=== PATIENT | male | born 1960 | race Caucasian/White ===

== ENCOUNTER 2020-08-12 11:55 | Outpatient (REF) | payer MEDICARE, MEDICAID, SELFPAY | END 2020-08-12 11:56 | disposition home or self-care (01) | LOC: HO.BBR 11:55 | PROVIDERS: Visit Provider Internal Medicine Hematology & Oncology | DX: Z13.89 Encounter for screening for other disorder (principal) ==

== ENCOUNTER 2020-11-12 10:00 | Outpatient (REF) | payer MEDICARE, MEDICAID, SELFPAY | END 2020-11-12 10:01 | disposition home or self-care (01) | LOC: HO.BBR 10:00 | PROVIDERS: Visit Provider Internal Medicine Hematology & Oncology | DX: Z13.89 Encounter for screening for other disorder (principal) ==

== ENCOUNTER 2022-04-27 08:50 | Outpatient (REF) | payer MEDICARE, MEDICAID, SELFPAY ==
[2022-04-27 09:07] LABS: MANUAL DIFF FLAG NO
[2022-04-27 09:10] LABS: Basophils Absolute Auto 0.1 X10*3/uL (0.0-0.2); Eosinophils Absolute Auto 0.1 X10*3/uL (0.0-0.4); Hematocrit 47.7 % (42.0-52.0); Hemoglobin 16.4 g/dl (14.0-18.0); Imm Gran Abs Auto 0.03 X10*3/uL (0.00-0.03); Imm Gran Pct Auto 0.4 % (0.0-0.4); Lymphocytes Absolute Auto 1.4 X10*3/uL (1.2-4.9); Lymphocytes Percent Auto 17.2 % (20-40); Mean Corpuscular HGB Conc 34.4 g/dl (31.0-36.0); Mean Corpuscular Hemoglobin 31.2 pg (27.0-33.0); Mean Corpuscular Volume 90.7 fL (80.0-98.0); Mean Platelet Volume 9.1 fL (9.4-12.4); Monocytes Absolute Auto 0.4 X10*3/uL (0.1-1.2); Monocytes Percent Auto 5.2 % (2-11); Neutrophils Absolute Auto 6.3 x10*3/uL (2.0-8.3); Neutrophils Percent Auto 75.2 % (45-73); Platelet Count 159 X10*3/uL (160-400); Red Blood Count 5.26 X10*6/uL (4.60-5.80); Red Cell Distribution Width 12.8 % (11.0-16.0); White Blood Count 8.3 X10*3/uL (4.8-10.8)
[2022-04-27 09:38] LABS: Iron 98 mcg/dL (45-160); Percent Iron Saturation 28 % (15-50); Total Iron Binding Capacity 356 mcg/dL (228-428); Unsaturated Iron Binding 258 ug/dL
[2022-04-27 09:58] LABS: Ferritin 29 ng/mL (20-250)
== END 2022-04-27 08:51 | disposition home or self-care (01) ==
LOC: HO.BBR 08:50
PROVIDERS: Visit Provider Internal Medicine Hematology & Oncology
DX: E83.110 Hereditary hemochromatosis (principal)
CPT/HCPCS: 36415; 82728; 83540; 85025

== ENCOUNTER 2022-10-26 07:58 | Outpatient (REF) | payer MEDICARE, MEDICAID, SELFPAY ==
[2022-10-26 08:09] LABS: MANUAL DIFF FLAG NO
[2022-10-26 08:11] LABS: Basophils Absolute Auto 0.1 X10*3/uL (0.0-0.2); Basophils Percent Auto 1.1 % (0-2); Eosinophils Absolute Auto 0.1 X10*3/uL (0.0-0.4); Eosinophils Percent Auto 1.3 % (0-4); Hematocrit 45.9 % (42.0-52.0); Hemoglobin 15.4 g/dl (14.0-18.0); Imm Gran Abs Auto 0.02 X10*3/uL (0.00-0.03); Imm Gran Pct Auto 0.4 % (0.0-0.4); Lymphocytes Absolute Auto 1.1 X10*3/uL (1.2-4.9); Lymphocytes Percent Auto 20.7 % (20-40); Mean Corpuscular HGB Conc 33.6 g/dl (31.0-36.0); Mean Corpuscular Hemoglobin 29.2 pg (27.0-33.0); Mean Corpuscular Volume 87.1 fL (80.0-98.0); Mean Platelet Volume 9.3 fL (9.4-12.4); Monocytes Absolute Auto 0.4 X10*3/uL (0.1-1.2); Monocytes Percent Auto 6.6 % (2-11); Neutrophils Absolute Auto 3.8 x10*3/uL (2.0-8.3); Neutrophils Percent Auto 69.9 % (45-73); Platelet Count 172 X10*3/uL (160-400); Red Blood Count 5.27 X10*6/uL (4.60-5.80); Red Cell Distribution Width 14.3 % (11.0-16.0); White Blood Count 5.5 X10*3/uL (4.8-10.8)
[2022-10-26 08:50] LABS: Iron 47 mcg/dL (45-160); Percent Iron Saturation 15 % (15-50); Total Iron Binding Capacity 309 mcg/dL (228-428); Unsaturated Iron Binding 262 ug/dL
[2022-10-26 09:03] LABS: Ferritin 27 ng/mL (20-250)
== END 2022-10-26 07:59 | disposition home or self-care (01) ==
LOC: HO.BBR 07:58
PROVIDERS: PCP Pediatrics; Visit Provider Internal Medicine Hematology & Oncology
DX: E83.110 Hereditary hemochromatosis (principal)
CPT/HCPCS: 36415; 82728; 83540; 85025